=== PATIENT | male | born 1975 | race Caucasian/White ===

== ENCOUNTER 2023-02-09 16:22 | Emergency (ER) | payer OTHER, SELFPAY ==
--- NOTE | ~2023-02-09 | XR_ITS ---
XR finger 2nd RT min 2V DATE: 02/09/2023 16:51 INDICATION: Smashed finger. Laceration. Pain. TECHNIQUE: 3 views COMPARISON: None FINDINGS: There is a subtle linear nondisplaced fracture at the lateral tuft. No other fracture or dislocation. No radiopaque soft tissue foreign body or subcutaneous emphysema. IMPRESSION: Subtle linear nondisplaced fracture of the lateral aspect of the tuft of the distal phala nx Reviewed, dictated and finalized at location [] IMPRESSION: Subtle linear nondisplaced fracture of the lateral aspect of the tu ft of the distal phalanx
[2023-02-09 16:24] VITALS: BP 151/91; PULSE 94; RESP 18; TEMP 36.4; O2SAT 98
--- NOTE | 2023-02-09 17:27 | ED.WOUNDLAC ---
HPI - Wound/Laceration General Chief Complaint: Wound/Laceration Stated Complaint: R index finger lac Time Seen by Provider: 02/09/23 16:34 Source: patient Mode of arrival: ambulatory Limitations: no limitations History of Present Illness HPI narrative: 48-year-old otherwise healthy here with a complaint of laceration to his right index finger. 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 He reports he accidentally slammed his finger between 2 slides. Onset (ago): hour(s) (3) Context: accidental Associated symptoms: none Related Data Allergies Allergy/AdvReac Type Severity Reaction Status Date / Time No Known Allergies Allergy Verified 02/09/23 16:46 Review of Systems Review of Systems: All systems reviewed & are unremarkable except as noted in HPI and below Constitutional: Constitutional: Reports no additional constitutional complaints Eyes: Eyes: Reports no additional eye complaints ENT: Reports system reviewed and no additional complaints, except as documented Cardiovascular: Cardiovascular: Reports no additional cardiovascular complaints Respiratory: Respiratory: Reports no additional respiratory complaints Musculoskeletal: Musculoskeletal: Reports as per HPI Integumentary/Breasts: Skin/Breast: Reports system reviewed and no additional complaints, except as docu Neurologic: Reports system reviewed and no additional complaints, except as documented Exam Narrative: GENERAL: Well-appearing, well-nourished, and in no acute distress. HEAD: Normocephalic, atraumatic. EYES: PERRLA and EOMI.. NECK: Supple. CHEST: Clear to auscultation. No respiratory distress. HEART: Regular rate and rhythm. No murmur heard. Normal peripheral pulses.. EXTREMITIES: Normal range of motion. No edema. Examination of the right hand has a approximately 3.5 cm laceration on the DIP with mild bleeding SKIN: Warm, dry, no rash. NEURO: No focal deficits. Alert and oriented x3. PSYCH: Normal mood and affect. Course Vital Signs Vital signs: Vital Signs Temperature 36.4 C 02/09/23 16:24 Pulse Rate 94 02/09/23 16:24 Respiratory Rate 18 02/09/23 16:24 Blood Pressure 151/91 H 02/09/23 16:24 Pulse Oximetry 98 02/09/23 16:24 Oxygen Delivery Room Air 02/09/23 16:24 Temperature 36.4 C 02/09/23 16:24 Pulse Rate 94 02/09/23 16:24 Respiratory Rate 18 02/09/23 16:24 Blood Pressure 151/91 H 02/09/23 16:24 Pulse Oximetry 98 02/09/23 16:24 Oxygen Delivery Room Air 02/09/23 16:24 Procedures Laceration Laceration 1: Date: 02/09/23 Time: 17:38 Site: other (right index finger) Side (If applicable): right Size (cm): 3 Description: linear Depth: simple, single layer Local Anesthetic: lidocaine 1% ====== Skin Level ====== Skin layer closed with: nylon (4) Number of sutures: 8 Technique: simple, interrupted ====== Subcutaneous Layer ====== Technique: running ====== Muscle Layer ====== ====== Tendon Layer ====== Tendon layer closed with: nylon Discharge Plan Discharge Clinical Impression: Laceration of finger Qualifiers: Encounter type: initial encounter Finger: index finger Damage to nail status: without damage Foreign body presence: without foreign body Laterality: right Qualified Code(s): S61.210A - Laceration without foreign body of right index finger without damage to nail, initial encounter Patient Disposition: Home, Self-Care Condition: Stable Instructions: Antibiotic Form, Laceration (ED) Additional Instructions: take antibiotic as prescribed .sutures off 7 to 10 days Prescriptions: New cephalexin 500 mg capsule 500 mg PO Q8H 7 Days Qty: 21 0RF ibuprofen 600 mg tablet 600 mg PO TID PRN (Reason: pain) Qty: 20 0RF Follow-up/Referrals: PHYSICIAN NOT ON STAFF,NONSTAFF [Primary Care Provider] - Juan Ramon Handley MD
== END 2023-02-09 18:00 | disposition home or self-care (01) ==
PROVIDERS: Emergency Provider Family Medicine
DX: S61.210A Laceration without foreign body of right index finger without damage to nail, initial encounter (principal); W23.0XXA Caught, crushed, jammed, or pinched between moving objects, initial encounter
CPT/HCPCS: 12002; 12042; 73140; 99283